=== PATIENT | female | born 1985 | race Caucasian/White ===

== ENCOUNTER 2018-12-15 11:17 | Observation (INO) ==
[2018-12-15 12:09] LABS: Basophils % 0.2 %; Eosinophils # 0.1 K/mcL (0.0-0.6); Eosinophils % 0.6 %; Hematocrit 37.3 % (35.3-44.9); Hemoglobin 12.9 g/dL (11.5-15.4); Immature Granulocytes % 0.5 % (0-4); Lymphocytes # 1.5 K/mcL (0.6-4.6); Lymphocytes % 13.9 %; Mean Corpuscular HGB Conc 34.6 g/dL (31.6-35.5); Mean Corpuscular Hemoglobin 31.9 pg (28.0-33.3); Mean Corpuscular Volume 92.1 fL (83.0-100.0); Mean Platelet Volume 10.7 fL (9.4-12.4); Monocytes # 0.9 K/mcL (0.0-1.3); Monocytes % 8.4 %; Platelet Count 311 K/mcL (140-400); Red Blood Count 4.05 M/mcL (3.82-4.97); Red Cell Distribution Width 14.5 % (11.5-14.5); Segmented Neutrophils % 76.4 %
[2018-12-15 12:17] LABS: Amphetamine Screen,Urine Negative ng/mL (Cutoff=1000); Barbiturate Screen,Urine Negative ng/mL (Cutoff=200); Benzodiazepines Screen,Urine Negative ng/mL (Cutoff=200); Cannabinoid Screen,Urine Negative ng/mL (Cutoff = 50); Cocaine Screen,Urine Negative ng/mL (Cutoff= 300); Opiate Screen,Urine Negative ng/mL (Cutoff=300); Phencyclidine Screen,Urine Negative ng/mL (Cutoff=25); Protein/Creatinine Ratio,Urine 0.23 mg/mg (0.00-0.20)
[2018-12-15 12:29] LABS: Alanine Aminotransferase 16 Units/L (7-52); Aspartate Amino Transferase 16 Units/L (13-39); BUN/Creatinine Ratio 11 (6-26); Blood Urea Nitrogen 6 mg/dL (6-20); Lactate Dehydrogenase 131 Units/L (140-271); Uric Acid 5.1 mg/dL (2.3-7.6); eGFR For Non-African Americans > 60 (> 60)
--- NOTE | 2018-12-15 13:04 | Discharge Summary ---
Date of Encounter: 12/15/18 Time of Encounter: 13:02 - Discharge Diagnosis (1) Elevated BP without diagnosis of hypertension Priority: Primary Status: Acute Comments: PIH evaluation BPs and PIH labs reviewed with Dr. Paz plan to discharge home (2) 36 weeks gestation of Priority: Secondary Status: Acute Comments: admitted for observation (3) Gestational diabetes Priority: Secondary Status: Acute Qualifiers: Gestational diabetes mellitus control: oral hypoglycemic-controlled Trimester: third trimester Qualified Code(s): O24.415 - Gestational diabetes mellitus in , controlled by oral hypoglycemic drugs (4) NST (non-stress test) reactive Priority: Secondary Status: Acute Comments: FHR 135 bpm moderate variability +15x15 accels no decels noted. Cat. 1 tracing. - Discharge Medications Prescriptions: No Action Omeprazole [PriLOSEC] 40 mg PO DAILY Vit #108/Iron/FA [ One Tablet] 1 each PO DAILY metFORMIN [Glucophage] 500 mg PO BID Home Medications: Omeprazole [PriLOSEC] 40 mg PO DAILY 12/12/18 [History] Vit #108/Iron/FA [ One Tablet] 1 each PO DAILY 12/12/18 [History] metFORMIN [Glucophage] 500 mg PO BID 12/15/18 [History] Allergies/Adverse Reactions: Allergy/AdvReac Type Severity Reaction Status Date / Time No Known Allergies Allergy Verified 06/01/18 08:40 Data Procedures and tests throughout hospitalization: Laboratory Tests 12/15/18 12/15/18 12/15/18 11:50 11:50 11:50 WBC 10.4 RBC 4.05 Hgb 12.9 Hct 37.3 MCV 92.1 MCH 31.9 MCHC 34.6 RDW 14.5 Plt Count 311 MPV 10.7 Immature Gran % 0.5 Seg Neutrophils % 76.4 Lymphocytes % 13.9 Monocytes % 8.4 Eosinophils % 0.6 Basophils % 0.2 Neutrophils # 8.0 Lymphocytes # 1.5 Monocytes # 0.9 Eosinophils # 0.1 Basophils # 0.0 BUN Creatinine Est GFR ( Amer) Est GFR (Non-Af Amer) BUN/Creatinine Ratio Uric Acid AST ALT Lactate Dehydrogenase Urine Creatinine 30 Protein/Creatinin Ratio 0.23 H Urine Total Protein 7 Urine Opiates Screen Negative Ur Barbiturates Screen Negative Ur Phencyclidine Scrn Negative Ur Amphetamines Screen Negative U Benzodiazepines Scrn Negative Urine Cocaine Screen Negative U Marijuana (THC) Screen Negative Ur Drug Screen Interp See Below 12/15/18 11:50 WBC RBC Hgb Hct MCV MCH MCHC RDW Plt Count MPV Immature Gran % Seg Neutrophils % Lymphocytes % Monocytes % Eosinophils % Basophils % Neutrophils # Lymphocytes # Monocytes # Eosinophils # Basophils # BUN 6 Creatinine 0.53 L Est GFR ( Amer) > 60 Est GFR (Non-Af Amer) > 60 BUN/Creatinine Ratio 11 Uric Acid 5.1 AST 16 ALT 16 Lactate Dehydrogenase 131 L Urine Creatinine Protein/Creatinin Ratio Urine Total Protein Urine Opiates Screen Ur Barbiturates Screen Ur Phencyclidine Scrn Ur Amphetamines Screen U Benzodiazepines Scrn Urine Cocaine Screen U Marijuana (THC) Screen Ur Drug Screen Interp Labs on day of discharge: Labs from last 24 hours 12/15/18 12/15/18 12/15/18 11:50 11:50 11:50 WBC 10.4 RBC 4.05 Hgb 12.9 Hct 37.3 MCV 92.1 MCH 31.9 MCHC 34.6 RDW 14.5 Plt Count 311 MPV 10.7 Immature Gran % 0.5 Seg Neutrophils % 76.4 Lymphocytes % 13.9 Monocytes % 8.4 Eosinophils % 0.6 Basophils % 0.2 Neutrophils # 8.0 Lymphocytes # 1.5 Monocytes # 0.9 Eosinophils # 0.1 Basophils # 0.0 BUN 6 Creatinine 0.53 L Est GFR ( Amer) > 60 Est GFR (Non-Af Amer) > 60 BUN/Creatinine Ratio 11 Uric Acid 5.1 AST 16 ALT 16 Lactate Dehydrogenase 131 L Urine Creatinine Protein/Creatinin Ratio Urine Total Protein Urine Opiates Screen Negative Ur Barbiturates Screen Negative Ur Phencyclidine Scrn Negative Ur Amphetamines Screen Negative U Benzodiazepines Scrn Negative Urine Cocaine Screen Negative U Marijuana (THC) Screen Negative Ur Drug Screen Interp See Below 12/15/18 11:50 WBC RBC Hgb Hct MCV MCH MCHC RDW Plt Count MPV Immature Gran % Seg Neutrophils % Lymphocytes % Monocytes % Eosinophils % Basophils % Neutrophils # Lymphocytes # Monocytes # Eosinophils # Basophils # BUN Creatinine Est GFR ( Amer) Est GFR (Non-Af Amer) BUN/Creatinine Ratio Uric Acid AST ALT Lactate Dehydrogenase Urine Creatinine 30 Protein/Creatinin Ratio 0.23 H Urine Total Protein 7 Urine Opiates Screen Ur Barbiturates Screen Ur Phencyclidine Scrn Ur Amphetamines Screen U Benzodiazepines Scrn Urine Cocaine Screen U Marijuana (THC) Screen Ur Drug Screen Interp Date of admission: 12/15/18 11:17 Primary care physician: PCP NONE Discharging clinician: Taylor Moreno Anticipated date of discharge: 12/15/18 - Patient Status Disposition: Home, Self-Care Condition: Good Functional capacity at discharge: independent ambulation - Discharge Instructions Follow Up With: NONE,PCP [Primary Care Provider] - Gopi Magana MD [Partnered Physician] - Additional Instructions: LABOR AND DELIVERY DISCHARGE INSTRUCTIONS Signs and Symptoms to be Reported to your Doctor Immediately: * Sudden gush, continuous or intermittent lead of fluid from vagina (note the time of gush and color of fluid) * Onset of bright red vaginal bleeding with or without pain (if you had a vaginal exam during this visit you may notice some dark red spotting. This is normal.) * Lower abdominal cramping or backache that is premenstrual-like feeling. * More than 6 contractions in one hour. * Burning during urination, having to urinate more frequently or pain in your mid-back. * A change in the baby's activity. This could be an increase or decrease in activity. * Severe headache which does not go away with tylenol. * Sudden swelling in the face, hands, arms and/or legs. * Upper abdominal pain - sometimes associated with heartburn or nausea and is not relieved by Maalox, Mylanta or Tums. * Dizziness or blurred vision or visual disturbances (seeing stars/lights). * Kick Counts One hour after a meal, lay down on one side in a quiet place. Count the number of bryan the baby moves during an hour. If less than 6 movements, notify your physician. Diet: *Force fluids - 8-10 tall glasses of fluid per day. May include popsicles and jello. *Limit caffeine - this includes chocolate, coffee, tea, any soft drink containing such as all veronica, Conrad Yellow and Mountain Dew - Diet and Activity Activity: increase activity as tolerated Diet: regular diet Hospital Course ONLINE MEDIA BUYER Hospital course: Patient is a 33 y/o at 36w6d presents to labor and delivery with c/o facial edema. Patient denies SCHWARTZ today but had one on Saturday. Patient also reports history of blurred vision and decreased movement. Patient denies LOF or VB. Time Attestation: Total time spent providing and/or coordinating discharge services: Time Spent: Less than 30 minutes Exam - Constitutional General appearance IM: A&O X 3, pleasant, answers questions appropriately - Respiratory Respiratory exam: Present: CTAB - Cardiovascular Cardiovascular exam IM: Present: RRR, +S1, +S2 - GI/Abdominal GI/Abdominal exam IM: hyperactive bowel sounds - Extremities Exam Extremities exam IM: Present: full ROM, pedal edema (1+ bilateral) - Neurological Exam Neurological exam: alert, oriented X3, reflexes normal - VTE Reasons for not Prescribing Prophylaxis: Treatment not Indicated - Low risk for VTE
== END 2018-12-15 13:15 | disposition home or self-care (01) ==
LOC: 1NENULAB
PROVIDERS: ADMIT Advanced Practice Midwife; ATTEND Advanced Practice Midwife

== ENCOUNTER → 2018-12-22 15:06 | Observation (INO) ==
[2018-12-22 14:25] LABS: Basophils % 0.2 %; Eosinophils # 0.1 K/mcL (0.0-0.6); Eosinophils % 0.7 %; Hematocrit 37.9 % (35.3-44.9); Immature Granulocytes % 0.5 % (0-4); Lymphocytes # 1.4 K/mcL (0.6-4.6); Lymphocytes % 13.6 %; Mean Corpuscular HGB Conc 34.3 g/dL (31.6-35.5); Mean Corpuscular Hemoglobin 31.7 pg (28.0-33.3); Mean Corpuscular Volume 92.4 fL (83.0-100.0); Mean Platelet Volume 10.8 fL (9.4-12.4); Monocytes # 0.6 K/mcL (0.0-1.3); Monocytes % 5.4 %; Neutrophils # 8.2 K/mcL (1.6-8.9); Platelet Count 311 K/mcL (140-400); Red Cell Distribution Width 14.6 % (11.5-14.5); Segmented Neutrophils % 79.6 %
[2018-12-22 14:34] LABS: Amphetamine Screen,Urine Negative ng/mL (Cutoff=1000); Barbiturate Screen,Urine Negative ng/mL (Cutoff=200); Benzodiazepines Screen,Urine Negative ng/mL (Cutoff=200); Cannabinoid Screen,Urine Negative ng/mL (Cutoff = 50); Cocaine Screen,Urine Negative ng/mL (Cutoff= 300); Creatinine,Urine 64 mg/dL; Opiate Screen,Urine Negative ng/mL (Cutoff=300); Phencyclidine Screen,Urine Negative ng/mL (Cutoff=25); Protein/Creatinine Ratio,Urine 0.25 mg/mg (0.00-0.20)
[2018-12-22 14:47] LABS: Alanine Aminotransferase 16 Units/L (7-52); Aspartate Amino Transferase 16 Units/L (13-39); BUN/Creatinine Ratio 19 (6-26); Blood Urea Nitrogen 10 mg/dL (6-20); Lactate Dehydrogenase 124 Units/L (140-271); eGFR For Non-African Americans > 60 (> 60)
--- NOTE | 2018-12-22 15:03 | OB/GYN Progress Note ---
Date of Encounter: 12/22/18 Time of Encounter: 14:57 - Assessment and Plan (1) 37 weeks gestation of Current Visit: Yes Status: Acute Normal serial blood pressures Labs normal NST reactive Discharge home with pre-e precautions and labor precautions Follow up in the office with Dr Magana as scheduled on and PRN POC per consult with Dr Magana. (2) NST (non-stress test) reactive Current Visit: Yes Status: Acute (3) Gestational diabetes Current Visit: Yes Status: Acute Qualifiers: Gestational diabetes mellitus control: oral hypoglycemic-controlled Trimester: third trimester Qualified Code(s): O24.415 - Gestational diabetes mellitus in , controlled by oral hypoglycemic drugs Subjective - Subjective Principal diagnosis: Pre-Eclampsia Evaluation Interval history: Ms Greer is a at 37 weeks and 6 days gestation that presents to labor and delivery triage with c/o headache this morning and a mild elevation in blood pressure this morning at the office (140/84). She states positive movement. She denies current headache, leaking of fluid, vaginal discharge, epigastric pain, vaginal bleeding, and contractions. She has been seen by Dr Magana for her care. This has been complicated by gestational diabetes for which she is currently taking metformin 500mg po BID. Antepartum ROS: movement normal Objective - Vital Signs Vital Signs: Intake and Output 12/21/18 12/22/18 12/22/18 23:59 07:59 15:59 Other: Weight 121.4 kg Patient Weight 12/22/18 23:59 Weight 121.4 kg - Exam FHR: auscultation normal, category 1 FHR comments: Baseline 135 moderate variability 15 x 15 accels no decels no contractions per toco or patient report Abdomen: Present: normal appearance, soft, gravid Uterus: Present: normal. Absent: firm - Labs Labs: Abnormal lab results RDW 14.6 % (11.5-14.5) H 12/22/18 14:00 0.52 mg/dL (0.60-1.20) L 12/22/18 14:00 124 Units/L (140-271) L 12/22/18 14:00 Protein/Creatinin Ratio 0.25 mg/mg (0.00-0.20) H 12/22/18 14:00 16 mg/dL (1-14) H 12/22/18 14:00
== END | disposition home or self-care (01) ==
LOC: 1NENULAB
PROVIDERS: ADMIT Advanced Practice Midwife; ATTEND Advanced Practice Midwife

== ENCOUNTER 2018-12-31 08:00 | Inpatient (IN) ==
[2018-12-31] MEDS ORDERED: Metoclopramide 10 MG/2 ML VIAL IVP PRN (08:27)
[2018-12-31] MEDS ORDERED: Famotidine 20 MG/2 ML VIAL IVP PRN (08:27)
[2018-12-31] MEDS ORDERED: *HR* Nalbuphine 10 MG/ML AMPUL IVP PRN (08:27)
[2018-12-31] MEDS ORDERED: Ondansetron 4 MG/2 ML VIAL IVP PRN (08:27)
[2018-12-31] MEDS ORDERED: Naloxone 0.4 MG/ML INJ IVP PRN (08:27)
[2018-12-31] MEDS ORDERED: Oxytocin 20 units/ LR 1000 mL 20 UNIT/1,000 ML BAG IVC SCH (08:30)
[2018-12-31] MEDS ORDERED: Ringers Solution, Lactated 1,000 ML IVC SCH (08:30)
[2018-12-31 08:59] LABS: Basophils % 0.2 %; Eosinophils # 0.1 K/mcL (0.0-0.6); Eosinophils % 0.6 %; Hematocrit 38.9 % (35.3-44.9); Hemoglobin 13.3 g/dL (11.5-15.4); Immature Granulocytes % 0.3 % (0-4); Lymphocytes # 1.2 K/mcL (0.6-4.6); Lymphocytes % 13.2 %; Mean Corpuscular HGB Conc 34.2 g/dL (31.6-35.5); Mean Corpuscular Hemoglobin 31.9 pg (28.0-33.3); Mean Corpuscular Volume 93.3 fL (83.0-100.0); Mean Platelet Volume 10.6 fL (9.4-12.4); Monocytes # 0.4 K/mcL (0.0-1.3); Monocytes % 4.3 %; Neutrophils # 7.6 K/mcL (1.6-8.9); Platelet Count 313 K/mcL (140-400); Red Blood Count 4.17 M/mcL (3.82-4.97); Red Cell Distribution Width 14.6 % (11.5-14.5); Segmented Neutrophils % 81.4 %
[2018-12-31] MEDS ORDERED: Penicillin G Potassium 5,000,000 UNIT in 0.9 % Sodium Chloride Mini Bag 100 ML IVPB ONE (08:59)
[2018-12-31 09:08] LABS: Amphetamine Screen,Urine Negative ng/mL (Cutoff=1000); Barbiturate Screen,Urine Negative ng/mL (Cutoff=200); Benzodiazepines Screen,Urine Negative ng/mL (Cutoff=200); Cannabinoid Screen,Urine Negative ng/mL (Cutoff = 50); Cocaine Screen,Urine Negative ng/mL (Cutoff= 300); Creatinine,Urine 116 mg/dL; Opiate Screen,Urine Negative ng/mL (Cutoff=300); Phencyclidine Screen,Urine Negative ng/mL (Cutoff=25); Protein/Creatinine Ratio,Urine 0.27 mg/mg (0.00-0.20)
[2018-12-31 09:18] LABS: Alanine Aminotransferase 17 Units/L (7-52); Aspartate Amino Transferase 19 Units/L (13-39); BUN/Creatinine Ratio 18 (6-26); Blood Urea Nitrogen 12 mg/dL (6-20); Lactate Dehydrogenase 140 Units/L (140-271); Uric Acid 5.6 mg/dL (2.3-7.6); eGFR For Non-African Americans > 60 (> 60)
[2018-12-31] MEDS ORDERED: Bupivacaine-MPF 0.25% 10 ML VIAL EP ONE (10:42)
[2018-12-31] MEDS ORDERED: *HR* FentaNYL (PF) 100 MCG/2 ML VIAL EP ONE (10:42)
--- NOTE | 2018-12-31 10:42 | Anesthesia Evaluation PreOp ---
Date of Encounter: 12/31/18 Time of Encounter: 10:40 - Past History Planned Operation: JONO Cardiac History: Denies any Significant Hx Pulmonary History: Denies Any Significant HX ENDBANDER History: Denies Any Significant HX Other Medical History: Other (gestational DM) Anesthesia History: No Prior Anesthetic Complications (never had NA; denies personal & family h/o GA complications), Past Anesthesia (R thumb sx) : Yes Alcohol Use: none Drug use: none Medications and Allergies Omeprazole [PriLOSEC] 40 mg PO DAILY 12/12/18 [History] Vit #108/Iron/FA [ One Tablet] 1 each PO DAILY 12/12/18 [History] metFORMIN [Glucophage] 500 mg PO QPM 12/15/18 [History] metFORMIN 1,000 mg PO QAM 12/22/18 [History] Allergy/AdvReac Type Severity Reaction Status Date / Time No Known Allergies Allergy Verified 06/01/18 08:40 - Meds/Allergy Pre-op Review Medications Reviewed: Yes Allergies Reviewed: Yes Beta Blockers on Current Med List: No Anesthesia Results - Labs 12/31/18 08:25 12/31/18 08:25 Anesthesia Exam 128/84, HR 92 O2 Sat Height 1.7 m Weight 120.202 kg NPO (# of Hours): solids > 8hrs - HEENT Pupil (Motor): Pupils equal Mallampati: II Teeth: Normal Oral Opening: Greater than 3 - ENDBANDER LOC: Oriented ENDBANDER Motor: Normal RUE, Normal LUE, Normal RLE, Normal LLE, Normal Face ENDBANDER Sensory: Normal: RUE, LUE, RLE, LLE, Face - Cardiac Rhythm: Regular Murmur: None - Pulmonary Breath Sounds: bilateral Clear Respiratory Effort: Symmetrical Anesthesia Assess/Plan ASA Score: 3 (BMI > 40) Level of consciousness: Cooperative, Oriented, Tranquil Anesthetic Plan: Epidural Autologous Blood: No Monitoring Plan: Standard Monitors Recovery Plan: Other
[2018-12-31] MEDS ORDERED: Epidural Premix (fent/bupiv) 110 ML EP SCH (10:45)
[2018-12-31] MEDS ORDERED: Bupivacaine-MPF 0.25% 10 ML VIAL ONE (15:03)
[2018-12-31] MEDS ORDERED: *HR* FentaNYL (PF) 100 MCG/2 ML VIAL ONE ×2 (15:03→23:19)
[2018-12-31] MEDS: Penicillin G Potassium 2,500,000 UNIT in 0.9 % Sodium Chloride 100 ML IVPB SCH ×2 (16:30→20:35)
--- NOTE | 2018-12-31 21:27 | Anesthesia Procedures ---
Date of Encounter: 12/31/18 Time of Encounter: 20:54 Procedures: Anesthesia - Epidural/Spinal Patient ID/Chart reviewed: Yes Patient examined: Yes OB Eval: Gestational age: 39 weeks 1 day OB Eval: : 1 OB Eval: Hx Para: 0 OB Eval: Contractions: Non-stressed pattern Consent Obtained: Yes Supplemental Oxygen: None/Room Air Site Prep: Aseptic Technique, Sterile prep and drape, 0.5% Chlorhexidine/Alcohol Patient position: upright Local Anesthetic: Lidocaine 1% Amount of Local Anesthetic used: 3 Touhy Needle Gauge: 18 Touhy Needle Depth (cm): 12 Catheter Depth at Skin (cm): 7 Test Dose (1.5% Lido + Epi): Volume given (mls): 5 Test Dose Result: Negative Loading Dose: 0.25% Marcaine (mls): 5 Loading Dose: Fentanyl (mcg): 100 Loading Dose Administered: Thru Catheter Infusion Med: 0.125% Bupivacaine w/ 2 mcg/ml Fentanyl Infusion Rate (mls/hr): 15 (demand bolus of 5mL q30min PRN) Catheter Secured in Place: Tegaderm, Tape Interspace Used: L4-L5 Loss of Resistance (JOSIAS): Yes Blood: No CSF: Yes (intentional meningeal puncture w/ sprotte needle through Tuohy) Paresthesia: No Spinal Needle Gauge: 25 Procedure: successful on 1st attempt; patient tolerated procedure well; VSS Vitals + FHT's: See Roz RN's electronic records for VS entry; patient w/ one episode of hypotension and bradycardia that responded immediately to 10mg ephedrine IV bolus.
[2018-12-31] MEDS ORDERED: *HR* Phenylephrine 10 MG/ML VIAL ONE (21:29)
[2018-12-31] MEDS ORDERED: EPHEDrine 50 MG/ML VIAL ONE (21:29)
[2018-12-31] MEDS ORDERED: Lidocaine/EPI 1:200k 2% PF 20 ML VIAL ONE (23:18)
[2018-12-31] MEDS ORDERED: *HR* Oxytocin 10 UNIT/ML VIAL IM ONE ×2 (23:20)
[2018-12-31] MEDS ORDERED: *HR* Labetalol 20 MG/4 ML SYRINGE IVP PRN (23:30)
[2018-12-31] MEDS ORDERED: Ondansetron 4 MG/2 ML VIAL IVP ONE (23:30)
[2018-12-31] MEDS ORDERED: *HR* OxyCODONE Immed Rel 5 MG TABLET PO PRN (23:30)
[2018-12-31] MEDS ORDERED: *HR* HYDROmorphone (PF) 1 MG/ML SYRINGE IVP PRN (23:30)
[2018-12-31] MEDS ORDERED: *HR* Promethazine 25 MG/ML VIAL IVP PRN (23:30)
[2018-12-31] MEDS ORDERED: CeFAZolin Premix DUPLEX 2,000 MG/50 ML BAG IVPB ONE (23:33)
--- NOTE | 2018-12-31 23:42 | OB/GYN History & Physical ---
Date of Encounter: 12/31/18 Time of Encounter: 08:00 Assessment and Plan (1) 39 weeks gestation of Current visit: Yes Status: Acute Patient was admitted to labor and delivery per Dr. Barrow for induction of labor due to gestational hypertension and gestational diabetes. Both are well controlled. (2) Gestational diabetes Current visit: No Status: Acute Qualifiers: Gestational diabetes mellitus control: oral hypoglycemic-controlled Trimester: third trimester Qualified Code(s): O24.415 - Gestational diabetes mellitus in , controlled by oral hypoglycemic drugs (3) Elevated BP without diagnosis of hypertension Current visit: No Status: Acute History of Present Illness Chief complaint: 39w1d for induction HPI: Ms. Greer is a 33 year old female 1 who presents to labor and delivery at 39 week 1 day gestation for induction of labor. Her was conceived through intrauterine insemination. She is in a same gender relationship. has been complicated by gestational diabetes and gestational hypertension. She has been using metformin. Blood sugars have been well controlled. She has no signs or symptoms of preeclampsia. Her partner is with her and very supportive. Past Med Surg Social Fam HX - Past Medical History Medical history: no medical history Psychiatric history: no psych history - Past Surgical History Surgical History: no surgical history - Social History Smoking Status: Never smoker Smokeless Tobacco Status: No Alcohol use: none Drug use: none - Family History Father Living Status: Still Living Hx Family Cardiac Disorders: Yes (A Fib, HTN) Hx Family Respiratory Disorders: No Hx Family Cancer: No Hx Family GI Disorders: No Hx Family Genitourinary Disorders: No Hx Family Endocrine Disorder: No Hx Family Musculoskeletal Disorders: No Hx Family Neuromuscular Disorders: No Hx Family Neurologic Disorders: No Hx Family HEENT Disorders: No Hx Family Autoimmune Disorders: No Hx Family Reproductive Disorders: No Hx Family Psychosocial Disorders: No Hx Family Medical Disorders: No Obstetrical History - Pregnancies : 1 Medications and Allergies Omeprazole [PriLOSEC] 40 mg PO DAILY 12/12/18 [History] Vit #108/Iron/FA [ One Tablet] 1 each PO DAILY 12/12/18 [History] metFORMIN [Glucophage] 500 mg PO QPM 12/15/18 [History] metFORMIN 1,000 mg PO QAM 12/22/18 [History] Allergy/AdvReac Type Severity Reaction Status Date / Time No Known Allergies Allergy Verified 06/01/18 08:40 Review of System OB All systems PM: reviewed and no additional remarkable complaints except as stated Exam - Constitutional Constitutional: well developed, well nourished - HEENT HEENT: Mucus Membranes Moist - Lungs Respiratory exam: CTAB - Cardiovascular Cardiovascular exam: RRR - Abdomen Abdomen: Present: gravid, non tender - Extremities Extremities exam: normal inspection - Cervix Dilation: 0 Effacement: 50 Station: -3 Results Result Diagrams: 12/31/18 08:25 12/31/18 08:25 Abnormal lab results RDW 14.6 % (11.5-14.5) H 12/31/18 08:25 Protein/Creatinin Ratio 0.27 mg/mg (0.00-0.20) H 12/31/18 08:25 31 mg/dL (1-14) H 12/31/18 08:25 All other labs normal. - VTE Reasons for not Prescribing Prophylaxis: Treatment not Indicated - Low risk for VTE
[2018-12-31] MEDS ORDERED: Ringers Solution, Lactated 1,000 ML ONE (23:55)
[2019-01-01] MEDS ORDERED: *HR* Morphine Sulfate/PF 10 MG/10 ML AMPUL ONE (00:06)
--- NOTE | 2019-01-01 00:31 | OB/GYN Procedure Note ---
Section - Date of procedure: 12/31/18 Preop diagnosis: category 2 FHT tracing Post-op diagnosis: same Procedure: primary low transverse Surgeon: Elda Williamson Blood Loss: 500 Was there an butcher assistant present: No Briquetting Machine Operator: Catarino Mckeon Anesthesia Type: Epidural section complications: none Disposition: L&D Recovery Room - (s) A Infant Delivery Date: 12/31/18 Delivery Time: 23:59 Presentation: vertex Route of delivery: other Gender: Female Viability: Viable Pounds: 6 Ounces: 5 Gram Weight: 2850 kg at 1 minute: 9 at 5 minutes: 9 Shoulder Dystocia: not encountered Placenta: partial extraction Cord: 3 umbilical vessels - Narrative Narrative: External monitor demonstrated recurrent decelerations with contractions without any augmentation or induction of labor. These findings were discussed with the patient and her partner at length. The patient strongly desired to proceed with a primary section well without any induction procedures. Risks benefits and indications and alternatives were discussed. Consent was signed. Patient was taken to the operating suite and adequate epidural anesthesia was assured. She is prepped and draped in the usual sterile fashion. M instill incision was created and taken down through the subcutaneous fat and fascia to rectus muscles. Peritoneum was entered in the midline without consequence to the bowel or bladder. Uterus was inspected. A low transverse incision was created. Upon entry into uterus clear fluid was noted. A viable female was atraumatically delivered from the uterus without difficulty. Cord was doubly clamped and cut and the was handed to our nurses in attendance. Apgars were 9 and 9 at one and 5 minutes respectively. All placental fragments were swept clean from the uterus. The uterus was then closed with 2 lengths of Vicryl in a running interlock fashion. Irrigation was performed. Surgical sites were inspected. Hemostasis was assured with interrupted sutures. Adnexa were examined and noted to be within normal limits. This was replaced within the abdominal cavity. Irrigation was performed. Surgical sites were inspected. All sponge lap needle and instrument counts were assured to be correct 2. The fascia was closed with one length of Vicryl in a running fashion. Subcutaneous tissue was reapproximated with interrupted sutures. Skin was closed with isaura. Dressing was placed. At the end of the procedure all sponge lap needle menstrual counts were correct 2. We had no intraoperative complications. Estimated blood loss was 500 mL's. Mother and baby were doing well.
[2019-01-01] MEDS ORDERED: Ringers Solution, Lactated 1,000 ML ONE (00:33)
[2019-01-01] MEDS ORDERED: *HR* Oxytocin 10 UNIT/ML VIAL IM ONE (00:33)
--- NOTE | 2019-01-01 00:44 | Anesthesia Evaluation Post Op ---
Date of Encounter: 01/01/19 Time of Encounter: 00:43 - Vital Signs Vital Signs: 106/49, HR 79, SpO2 97%, RR 12 - Lungs Lungs: Clear Ascult./Percussion - Airway Airway: Non-obstructed - Cardiovascular Regular Rate - Mental Status Mental Status: Alert & Oriented, Answers Appropriately - Pain Pain Scale: 0 Pain Scale used: Numeric (1 - 10) - Nausea Vomiting Nausea Vomiting: Not Present - Hydration Hydration: NPO, Perkins catheter - Discharge PostOp Status: Transfer Patient to floor
[2019-01-01] MEDS ORDERED: Metoclopramide 10 MG/2 ML VIAL IVP PRN (03:04)
[2019-01-01] MEDS ORDERED: Sennosides 8.6 MG TABLET PO PRN (03:04)
[2019-01-01] MEDS ORDERED: Ondansetron 4 MG/2 ML VIAL IVP PRN (03:04)
[2019-01-01] MEDS ORDERED: Oxytocin 20 units/ LR 1000 mL 20 UNIT/1,000 ML BAG IVC SCH (03:04)
[2019-01-01] MEDS ORDERED: Rho Immune Globulin 1,500 UNIT SYRINGE IM ONE (03:04)
[2019-01-01] MEDS ORDERED: Simethicone 80 MG TAB.CHEW PO PRN (03:04)
[2019-01-01] MEDS: Ibuprofen 600 MG TABLET PO PRN ×2 (04:07→16:22)
[2019-01-01] MEDS: *HR* OxyCODONE/APAP 5/325 TABLET PO PRN ×5 (04:07→23:22)
[2019-01-01 05:31] LABS: Basophils % 0.1 %; Eosinophils % 0.1 %; Hematocrit 34.6 % (35.3-44.9); Immature Granulocytes % 0.3 % (0-4); Lymphocytes # 1.2 K/mcL (0.6-4.6); Lymphocytes % 8.8 %; Mean Corpuscular HGB Conc 33.2 g/dL (31.6-35.5); Mean Corpuscular Hemoglobin 31.9 pg (28.0-33.3); Mean Corpuscular Volume 95.8 fL (83.0-100.0); Mean Platelet Volume 10.5 fL (9.4-12.4); Monocytes # 0.7 K/mcL (0.0-1.3); Monocytes % 5.1 %; Neutrophils # 11.5 K/mcL (1.6-8.9); Platelet Count 258 K/mcL (140-400); Red Blood Count 3.61 M/mcL (3.82-4.97); Red Cell Distribution Width 14.6 % (11.5-14.5); Segmented Neutrophils % 85.6 %
[2019-01-01 05:32] LABS: Hemoglobin 11.5 g/dL (11.5-15.4)
[2019-01-01] MEDS: Prenatal Vit/FA 1 EACH TABLET PO SCH (07:48)
--- NOTE | 2019-01-01 09:22 | OB/GYN Progress Note ---
Date of Encounter: 01/01/19 Time of Encounter: 09:20 - Assessment and Plan (1) S/P section Current Visit: Yes Status: Acute POD #1. Meeting day one milestones. Bleeding normal, no large clots noted. Pain well controlled on prescribed medications. Voiding normally (catheter in place). Hypoactive bowel sounds, no BM yet. Tolerating diet, however nauseous this morning but felt better after vomiting. Continue nausea meds PRN. Has not yet ambulated, <10 hours post-op, plan to get up to edge of bed at noon Very little sleep since delivery. Plans to breastfeed, was able to express 5-6mL and give to baby. Subjective - Subjective Principal diagnosis: s/p Patient reports: appetite normal, voiding normally (catheter in place), pain well controlled, nauseated (vomited and feeling a littler better now), other (Has not ambulated yet) : doing well Objective - Vital Signs Latest vital signs: Vital Signs Temp Pulse Resp BP Pulse Ox 01/01/19 09:08 97.5 F L 80 14 114/72 97 01/01/19 06:00 97.8 F 72 14 111/67 97 01/01/19 05:06 98.2 F 79 16 123/72 96 01/01/19 04:09 98.4 F 94 17 115/73 94 01/01/19 03:31 98.5 F 96 16 116/67 95 01/01/19 03:00 98.1 F 87 14 121/74 96 Intake and Output 12/31/18 01/01/19 01/01/19 23:59 07:59 15:59 Intake Total 100 / 100 Output Total 600 / 600 Balance 100 / 100 -600 / -600 Intake: IV Fluids 100 / 100 Pfizerpen 2,500,000 UNIT In 0.9 100 / 100 % Sodium Chloride 100 ML @ 100 mls/hr IVPB Q4HR [facility] Rx#: [id number] Output: Catheter 600 / 600 Other: Weight 125.5 kg Patient Weight 01/01/19 23:59 Weight 125.5 kg - Exam Lungs: bilateral: normal Chest: Normal S1, Normal S2 Extremities: Present: edema (non-pitting in bilateral LE). Absent: tenderness Abdomen: Present: soft. Absent: tenderness Incision: Present: dry, intact Uterus: Present: normal, firm Fundal Height: 0 (at level of umbilicus) - Labs Labs: Laboratory Results - last 24 hr 01/01/19 04:55 WBC 13.5 H RBC 3.61 L Hgb 11.5 D Hct 34.6 L MCV 95.8 MCH 31.9 MCHC 33.2 RDW 14.6 H Plt Count 258 MPV 10.5 Immature Gran % 0.3 Seg Neutrophils % 85.6 Lymphocytes % 8.8 Monocytes % 5.1 Eosinophils % 0.1 Basophils % 0.1 Neutrophils # 11.5 H Lymphocytes # 1.2 Monocytes # 0.7 Eosinophils # 0.0 Basophils # 0.0
[2019-01-01] MEDS ORDERED: *HR* Promethazine 25 MG/ML VIAL IVP ONE (09:43)
[2019-01-01 10:32] LABS: Glucose 130 mg/dL (70-105)
[2019-01-02] MEDS: *HR* OxyCODONE/APAP 5/325 TABLET PO PRN ×3 (04:31→12:17)
[2019-01-02] MEDS: Ibuprofen 600 MG TABLET PO PRN (04:31)
[2019-01-02] MEDS: Prenatal Vit/FA 1 EACH TABLET PO SCH (08:01)
--- NOTE | 2019-01-02 08:58 | Discharge Summary ---
Date of Encounter: 01/02/19 Time of Encounter: 08:56 - Discharge Diagnosis (1) S/P section Priority: Primary Status: Acute Comments: S/P primary c/s day 2. Pain is well controlled Lochia light Voiding without difficulty Tolerating regular diet and passing flatus bottle feeding and breast feeding Discharge today (2) Gestational diabetes Priority: Secondary Status: Acute Comments: Will need fasting 2 hour GTT at appointment Qualifiers: Gestational diabetes mellitus control: oral hypoglycemic-controlled Trimester: third trimester Qualified Code(s): O24.415 - Gestational diabetes mellitus in , controlled by oral hypoglycemic drugs - Discharge Medications Prescriptions: New Breast Pump [BREAST PUMP] 1 each .ROUTE AD #1 each Docusate [Colace] 100 mg PO BID #30 capsule Ferrous Sulfate 325 mg PO DAILY@0800 #90 tablet Simethicone [Gas-X] 80 mg PO TID PRN tab.chew PRN Reason: Dyspepsia Ibuprofen [Motrin] 600 mg PO Q6H PRN #30 tablet PRN Reason: Cramping OxyCODONE/APAP 5/325 [Percocet 5/325 MG] 1 each PO Q6H PRN 5 Days #20 tablet PRN Reason: Moderate pain 4-6 Continued Omeprazole [PriLOSEC] 40 mg PO DAILY Vit #108/Iron/FA [ One Tablet] 1 each PO DAILY Discontinued metFORMIN [Glucophage] 500 mg PO QPM metFORMIN 1,000 mg PO QAM Home Medications: Omeprazole [PriLOSEC] 40 mg PO DAILY 12/12/18 [History] Vit #108/Iron/FA [ One Tablet] 1 each PO DAILY 12/12/18 [History] Breast Pump [BREAST PUMP] 1 each .ROUTE AD #1 each 01/02/19 [Rx] Docusate [Colace] 100 mg PO BID #30 capsule 01/02/19 [Rx] Ferrous Sulfate 325 mg PO DAILY@0800 #90 tablet 01/02/19 [Rx] Ibuprofen [Motrin] 600 mg PO Q6H PRN #30 tablet 01/02/19 [Rx] OxyCODONE/APAP 5/325 [Percocet 5/325 MG] 1 each PO Q6H PRN 5 Days #20 tablet 01/02/19 [Rx] Simethicone [Gas-X] 80 mg PO TID PRN tab.chew 01/02/19 [Rx] Allergies/Adverse Reactions: Allergy/AdvReac Type Severity Reaction Status Date / Time No Known Allergies Allergy Verified 06/01/18 08:40 Data Procedures and tests throughout hospitalization: Laboratory Tests 12/31/18 12/31/18 12/31/18 08:25 08:25 08:25 WBC 9.3 RBC 4.17 Hgb 13.3 Hct 38.9 MCV 93.3 MCH 31.9 MCHC 34.2 RDW 14.6 H Plt Count 313 MPV 10.6 Immature Gran % 0.3 Seg Neutrophils % 81.4 Lymphocytes % 13.2 Monocytes % 4.3 Eosinophils % 0.6 Basophils % 0.2 Neutrophils # 7.6 Lymphocytes # 1.2 Monocytes # 0.4 Eosinophils # 0.1 Basophils # 0.0 BUN 12 Creatinine 0.65 Est GFR ( Amer) > 60 Est GFR (Non-Af Amer) > 60 BUN/Creatinine Ratio 18 Glucose 130 H Uric Acid 5.6 AST 19 ALT 17 Lactate Dehydrogenase 140 Urine Creatinine 116 Protein/Creatinin Ratio 0.27 H Urine Total Protein 31 H Urine Opiates Screen Negative Ur Barbiturates Screen Negative Ur Phencyclidine Scrn Negative Ur Amphetamines Screen Negative U Benzodiazepines Scrn Negative Urine Cocaine Screen Negative U Marijuana (THC) Screen Negative Ur Drug Screen Interp See Below 01/01/19 04:55 WBC 13.5 H RBC 3.61 L Hgb 11.5 D Hct 34.6 L MCV 95.8 MCH 31.9 MCHC 33.2 RDW 14.6 H Plt Count 258 MPV 10.5 Immature Gran % 0.3 Seg Neutrophils % 85.6 Lymphocytes % 8.8 Monocytes % 5.1 Eosinophils % 0.1 Basophils % 0.1 Neutrophils # 11.5 H Lymphocytes # 1.2 Monocytes # 0.7 Eosinophils # 0.0 Basophils # 0.0 BUN Creatinine Est GFR ( Amer) Est GFR (Non-Af Amer) BUN/Creatinine Ratio Glucose Uric Acid AST ALT Lactate Dehydrogenase Urine Creatinine Protein/Creatinin Ratio Urine Total Protein Urine Opiates Screen Ur Barbiturates Screen Ur Phencyclidine Scrn Ur Amphetamines Screen U Benzodiazepines Scrn Urine Cocaine Screen U Marijuana (THC) Screen Ur Drug Screen Interp Labs on day of discharge: Labs from last 24 hours 12/31/18 08:25 BUN 12 Creatinine 0.65 Est GFR ( Amer) > 60 Est GFR (Non-Af Amer) > 60 BUN/Creatinine Ratio 18 Glucose 130 H Uric Acid 5.6 AST 19 ALT 17 Lactate Dehydrogenase 140 Date of admission: 12/31/18 08:13 Primary care physician: Chelsea Mora CNP Discharging clinician: Hailey Hernandez Anticipated date of discharge: 01/02/19 - Patient Status Disposition: Home, Self-Care Condition: Good Functional capacity at discharge: independent ambulation Overall status at discharge: patient is progressing back to baseline - Discharge Instructions Follow Up With: Chelsea Mora CNP [Primary Care Provider] - Elda Burgos MD [Partnered Physician] - - Diet and Activity Activity: increase activity as tolerated Diet: regular diet Hospital Course Reason for admission: IUP at term Delivery: section Episiotomy: none Laceration: none Other procedures: none complications: none Discharge diagnosis: IUP at term delivered [place] baby: female Time Attestation: Total time spent providing and/or coordinating discharge services: Time Spent: Less than 30 minutes - VTE Reasons for not Prescribing Prophylaxis: Treatment not Indicated - Low risk for VTE Documentation of Mechanical Device: Intermittent pneumatic compression device Exam - Constitutional Vitals: Temp Pulse Resp BP Pulse Ox 97.9 F 96 16 118/84 98 01/02/19 08:00 01/02/19 08:00 01/02/19 08:00 01/02/19 08:00 01/02/19 08:00 General appearance IM: cooperative, A&O X 3, pleasant - Respiratory Respiratory exam: Present: CTAB - Cardiovascular Cardiovascular exam IM: Present: RRR, +S1, +S2 - GI/Abdominal GI/Abdominal exam IM: normal bowel sounds, soft Incision: normal, dry, intact - Rectal Rectal exam: deferred - Uterine Tone: Firm Uterus Position: At Umbilicus, Midline - Neurological Exam Neurological exam: alert, oriented X3
[2019-01-02] MEDS ORDERED: MOM Conc 10 ML UD.LIQ PO ONE (09:58)
[2019-01-02 11:49] VITALS: BP 125/85
[2019-01-02] MEDS ORDERED: Measles/Mumps/Rubella Vacc 0.5 ML VIAL SQ ONE (12:15)
== END 2019-01-02 15:35 | disposition home or self-care (01) | DRG 788 ==
LOC: 1NENULAB 08:13 → 1NENUOBS 01-01 03:02
PROVIDERS: ADMIT Obstetrics & Gynecology; ATTEND Obstetrics & Gynecology